=== PATIENT | male | born 1970 | race Caucasian/White ===

== ENCOUNTER 2022-07-03 07:23 | Observation (INO) | payer OTHER, SELFPAY ==
[2022-07-03] VITALS (21 sets, daily range): BP systolic 148–201; BP diastolic 75–105; PULSE 57–81; RESP 17–20; TEMP 36.3–37.2; O2SAT 94–100; BMI 29.6
--- NOTE | ~2022-07-03 | CT_ITS ---
EXAMINATION: CT abdomen pelvis w con DATE: 07/03/2022 08:21 INDICATION: Right lower quadrant abdominal pain. TECHNIQUE: Computed tomography (CT) of the abdomen and pelvis was performed with 100 mL Omnipaque 350 intravenous contrast. Automated exposure control and iterative reconstruction technique were employe d. The dose-length product was 805.22 mGy-cm. COMPARISON: Ultrasound abdomen 01/13/2015 FINDINGS: The visualized portions of the lung bases demonstrate mild atelectasis. No pleural effusion . The heart size is normal. No pericardial effusion. There is a small sliding hiatal hernia. There ar e cysts in the liver measuring up to 6 mm. There is an 18 mm hypoattenuated mass in right hepatic lob e. There are changes of cholecystectomy. Calcifications in the spleen are consistent with old granulo matous disease. The pancreas and adrenal glands are normal. There is a delayed right-sided contrast n ephrogram. There is a 2 mm stone in right kidney. There is mild right hydronephrosis. There is an 8 m m stone in proximal right ureter. There are cysts in left kidney measuring up to 20 mm. There are no dilated loops of bowel. The appendix is normal. There are no pathologically enlarged lymph nodes. The re is no free intraperitoneal fluid. There is moderate lumbar spondylosis and mild thoracic spondylos is. IMPRESSION: 1. 8 mm stone in proximal right ureter with mild right hydronephrosis. 2. 2 mm nonobstructing right kidney stone. 3. 18 mm liver mass, which may be benign or malignant. Abdomen MRI without and with contrast is recom mended. Reviewed, dictated and finalized at location A. IMPRESSION: 1. 8 mm stone in proximal right ureter with mild right hydronephrosis. 2. 2 mm nonobstructing right kidney stone. 3. 18 mm liver mass, which may be benign or malignant. Abdomen MRI without and with contrast is recommended.
--- NOTE | ~2022-07-03 | XR_ITS ---
EXAMINATION: XR abdomen/kub 1V DATE: 07/04/2022 11:01 INDICATION: Renal stone TECHNIQUE: A supine view of the abdomen on 2 radiographs was obtained. COMPARISON: CT dated 07/03/2022 FINDINGS: Cholecystectomy clips in right upper quadrant. Subtle density projecting over the tip of the right L3 transverse with likely representing the stone previously noted at the right ureteropelvic junction o n prior CT however assessment is somewhat limited by superimposed stool in the colon. No other lesion s suspicious for urolithiasis. Multiple splenic calcifications consistent with old granulomatous dise ase. No dilated loops of bowel to suggest obstruction. Lung bases are clear. Heart size is normal. Le ft supra-acetabular bone island. IMPRESSION: 1. Subtle focal density projecting over the region of the right ureteropelvic junction likely represe nting the previously noted obstructing stone. Specificities decreased by superimposed stool in the co alecia. Reviewed, dictated and finalized at location A. IMPRESSION: 1. Subtle focal density projecting over the region of the right ureteropelvic j unction likely representing the previously noted obstructing stone. Specificiti es decreased by superimposed stool in the colon.
--- NOTE | ~2022-07-03 | MR_ITS ---
EXAMINATION: MR abdomen wo/w con DATE: 07/03/2022 15:05 INDICATION: Liver mass. TECHNIQUE: Magnetic resonance imaging (MRI) of the abdomen was performed without and with 19 mL Multi Geo intravenous contrast. COMPARISON: CT abdomen and pelvis 07/03/2022 FINDINGS: There is diffuse hepatic steatosis. There are cysts in the liver measuring up to 5 mm. In the right h epatic lobe, there is a 19 mm mass with peripheral interrupted puddling of contrast, consistent with a hemangioma. The gallbladder is absent. The spleen, pancreas, and adrenal glands are normal. There i s mild right hydronephrosis. There is asymmetric edema around right kidney. There is a 2.0 cm cyst in left kidney. There are no dilated loops of bowel. There are no pathologically enlarged lymph nodes. There is no free intraperitoneal fluid. IMPRESSION: 1. 19 mm hemangioma in the liver. 2. Diffuse hepatic steatosis. 3. Mild right hydronephrosis with ureteral stone seen on the recent CT. Reviewed, dictated and finalized at location B.
--- NOTE | 2022-07-03 07:37 | ED.ABDPAIN ---
HPI - Abdominal Pain General Chief Complaint: Abdominal Pain Stated Complaint: abd pain Time Seen by Provider: 07/03/22 07:37 Source: patient, family and RN notes reviewed Limitations: no limitations History of Present Illness HPI narrative: 52 years old white male presents with right lower abdominal pain started 2 hours prior to arrival to the emergency room, sharp, stabbing, no radiation, he denies any fever, chills, nausea, vomiting, diarrhea, constipation or urinary symptoms, history of cholecystectomy Related Data Allergies Allergy/AdvReac Type Severity Reaction Status Date / Time No Known Allergies Allergy Verified 06/01/18 19:40 Review of Systems Review of Systems: All systems reviewed & are unremarkable except as noted in HPI and below PMFSH Family History Family History Mother Cerebrovascular accident Family history of pancreatic cancer Father Family history of malignant neoplasm Family history of diabetes mellitus in first degree relative Social History Social History Alcohol intake: current Exam Narrative: General appearance: Well-developed, well-nourished Skin: Normal color Head: Normocephalic, nontraumatic Eyes: Clear conjunctiva ENT: Oropharynx normal, ears normal, nose normal Neck: Supple, nontender Chest and respiratory: Airway patent, no respiratory distress, no accessory muscle use Heart: Regular rate/rhythm Abdomen: Soft, right lower quadrant tenderness, no organomegaly, quiet bowel sounds Vascular: Normal peripheral pulses, normal capillary refill. 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 Hudson Admit to hospitalist Date: 07/03/22 Time: 11:20 Vital Signs Vital signs: Vital Signs Temperature 36.7 C 07/03/22 07:30 Pulse Rate 64 07/03/22 07:30 Respiratory Rate 17 07/03/22 07:30 Blood Pressure 201/105 H 07/03/22 07:30 Pulse Oximetry 98 07/03/22 07:30 Oxygen Delivery Room Air 07/03/22 07:30 Temperature 36.7 C 07/03/22 07:30 Pulse Rate 64 07/03/22 07:30 Respiratory Rate 17 07/03/22 07:30 Blood Pressure 175/104 H 07/03/22 08:48 Pulse Oximetry 95 07/03/22 09:30 Oxygen Delivery Room Air 07/03/22 07:30 MDM - Abdominal Pain Lab Data Result diagrams: 07/03/22 07:44 07/03/22 07:44 Labs: Lab Results 07/03/22 07/03/22 07/03/22 Range/Units 07:44 07:44 08:42 WBC 8.2 (4.5-10.0) K/mm3 RBC 5.29 (4.6-6.20) M/mm3 Hgb 17.4 (14.0-18.0) g/dL Hct 50.0 (42.0-52.0) % MCV 94.5 (80-100) fl MCH 32.9 (26-34) pg MCHC 34.8 (32-36) g/dl RDW 12.5 (11.5-14.5) % Plt Count 187 (150-375) k/mm3 MPV 9.7 (7.4-10.4) fl Immature Gran % (Auto) 0.4 (0-0.5) % Neut % (Auto) 72.7 (45.5-73.1) % Lymph % (Auto) 16.0 L (18.3-44.2) % Keith % (Auto) 7.8 (2.6-8.5) % Eos % (Auto) 2.2 (0-4.4) % Baso % (Auto) 0.9 (0.2-1.2) % Lymph # (Auto) 1.31 (0.9-3.2) K/mm3 Keith # (Auto) 0.6 (0.1-0.6) K/mm3 Eos # (Auto) 0.2 (0-0.3) K/mm3 Baso # (Auto) 0.1 (0.0-0.1) K/mm3 Abs Immat Gran (auto) 0.03 (0.00-0.031) K/mm3 Absolute Neuts (auto) 6.0 (1.3-6.7) K/mm3 Absolute Nucleated RBC 0.0 (0.0-0.012) K/mm3 Nucleated RBC % 0.0 (0.0-0.2) % Sodium 138 (137-145) mmol/L Potassium 4.1 (3.4-5.0) mmol/L Chloride 107 (98-107) mmol/L Carbon Dioxide 24 (22-30) mmol/L Anion Gap 7 L (8-16) mmol/L BUN 14 (9-20
[2022-07-03 07:53] LABS: Basophils Absolute Auto 0.1 K/mm3 (0.0-0.1); Basophils Percent Auto 0.9 % (0.2-1.2); Eosinophils Absolute Auto 0.2 K/mm3 (0-0.3); Eosinophils Percent Auto 2.2 % (0-4.4); Hemoglobin 17.4 g/dL (14.0-18.0); Immature Granulocyte Absolute 0.03 K/mm3 (0.00-0.031); Immature Granulocyte Percent A 0.4 % (0-0.5); Lymphocytes Absolute Auto 1.31 K/mm3 (0.9-3.2); Mean Corpuscular HGB Conc 34.8 g/dl (32-36); Mean Corpuscular Hemoglobin 32.9 pg (26-34); Mean Corpuscular Volume 94.5 fl (80-100); Mean Platelet Volume 9.7 fl (7.4-10.4); Monocytes Absolute Auto 0.6 K/mm3 (0.1-0.6); Monocytes Percent Auto 7.8 % (2.6-8.5); Neutrophils Percent Auto 72.7 % (45.5-73.1); Platelet Count Result 187 k/mm3 (150-375); Red Blood Count 5.29 M/mm3 (4.6-6.20); Red Cell Distribution Width 12.5 % (11.5-14.5); White Blood Count 8.2 K/mm3 (4.5-10.0)
[2022-07-03 08:05] LABS: Alanine Aminotransferase 21 U/L (6-50); Albumin Level 4.1 g/dL (3.5-5.1); Alkaline Phosphatase 97 U/L (38-126); Anion Gap 7 mmol/L (8-16); Aspartate Amino Transferase 19 U/L (17-59); Bilirubin,Total 0.8 mg/dL (0.2-1.3); Blood Urea Nitrogen 14 mg/dL (9-20); Calcium 9.2 mg/dL (8.4-10.2); Carbon Dioxide 24 mmol/L (22-30); Chloride 107 mmol/L (98-107); Estimated CRCL calculation 89 ml/min; Estimated Glomerular Filt Rate > 60; Glucose 116 mg/dL (65-110); Lipase 57 U/L (23-300); Potassium 4.1 mmol/L (3.4-5.0); Sodium 138 mmol/L (137-145)
[2022-07-03] MEDS: SODIUM CHLORIDE 0.9% IV 1,000 ML 999 ML IV CONT (08:44)
[2022-07-03] MEDS: HYDROmorphone HCL INJ (*CRX) 1 MG/ML SYR 0.5 MG IV PUSH (08:44)
[2022-07-03] MEDS: ONDANSETRON INJ 4 MG/2 ML VIAL IV PUSH (08:45)
[2022-07-03 08:51] LABS: Appearance Urine Clear (Clear); Bilirubin Urine Negative (Negative); Blood Urine 2+ (Negative); Color Urine Yellow (Yellow); Glucose Urine UA Negative (Negative); Ketones Urine Negative (Negative); Leukocyte Esterase Ur Negative LEU/UL (Negative); Nitrate Urine Negative (Negative); Protein Urine Negative (Negative); Specific Grav Ur 1.015 (1.001-1.035); Urobilinogen Urine 0.2 mg/dL (<2.0); pH Urine 6.5 (5.0-9.0)
[2022-07-03 08:58] LABS: Mucus Urine Rare /lpf; WBC Urine 0-3 /hpf
[2022-07-03 09:00] LABS: Add Urine Microscopic? YES
[2022-07-03] MEDS: SODIUM CHLORIDE 0.9% IV 1,000 ML 125 ML IV CONT (11:41)
[2022-07-03] MEDS: TAMSULOSIN HCL 0.4 MG CAPSULE PO (11:42)
--- NOTE | 2022-07-03 12:14 | PC.NURSE ---
Patient care report called to TABITHA Rawls. All questions answered at this time.
--- NOTE | 2022-07-03 12:55 | ADMGEN ---
This patient, Harvinder Barajas, was admitted to Medical Room 253-01. Patient/family oriented to hospital policies and general routines including ID bracelet, bed and alarms, visiting hours, pain management, procedures, bathroom and other care routines, personal items, smoking policy, room service/diet, and visiting hours. Information on how to activate the Rapid Response Team has been discussed. Patient/Family are encouraged to report perceived risks to care and to ask questions if they do not understand what they are told or what they should do.
--- NOTE | 2022-07-03 13:15 | PM.IMHP ---
H&P: HPI History of Present Illness Date/Time: 07/03/22 13:15 Chief Complaint: Abdominal pain Narrative: This is a 52-year-old male patient who has no prior medical history. The patient came in today with complaints of right lower abdominal pain that started 2 hours prior to coming to the emergency room. The patient denied any fever chills nausea vomiting or diarrhea or constipation. No urinary symptoms. Patient has no history of having any kidney stones. His white count is normal. He has 2+ urine blood. Urine rbc's 11-20. Abdominal pelvis CT was read as the following1. 8 mm stone in proximal right ureter with mild right hydronephrosis. 2. 2 mm nonobstructing right kidney stone. 3. 18 mm liver mass, which may be benign or malignant. Abdomen MRI without and with contrast is recommended. Urology has been consulted and has already seen the patient. Who the patient was started on IV fluids, Dilaudid, Zofran and Flomax. The patient has no history of hypertension however his blood pressures have been running from 201/105 to 168/95. He has been ranging his pain /10. The patient stated initially the pain had him bent over and he was having difficulty walking. The patient is being admitted to inpatient status on the date of service of 07/03/2022. Review of Systems Review of Systems: See HPI All systems reviewed & are unremarkable except as noted in HPI and below Constitutional: Constitutional: Reports as per HPI and Reports no additional constitutional complaints Eyes: Eyes: Reports as per HPI and Reports no additional eye complaints ENT: Reports system reviewed and no additional complaints, except as documented and Reports Normal hearing present Cardiovascular: Cardiovascular: Reports no additional cardiovascular complaints Respiratory: Respiratory: Reports no additional respiratory complaints and Reports no additional respiratory complaints Gastrointestinal: Gastrointestinal: Reports as per HPI and Reports no additional gastrointestinal complaints Musculoskeletal: Musculoskeletal: Reports no additional musculoskeletal complaints Integumentary/Breasts: Skin/Breast: Reports system reviewed and no additional complaints, except as docu and Reports as per HPI Neurologic: Reports system reviewed and no additional complaints, except as documented, Reports as per HPI and Reports Normal hearing present Psychiatric: Psychiatric: Reports no additional psychiatric complaints and Reports as per HPI Endocrine: Endocrine: Reports no additional endocrine complaints Hematologic/Lymphatic: Hematologic/Lymphatic: Reports no additional hematologic/lymphatic complaints Allergic/Immunologic: Allergic/Immunologic: Reports no additional allergic/immunologic complaints PMFSH Past Medical History Medical History (Updated 07/03/22 @ 14:36 by Jazz Goff NP) Tobacco abuse Surgical History Surgical History H/O vasectomy Hx of cholecystectomy S/P ORIF (open reduction internal fixation) fracture Bilateral ankles Family History Family History Mother Cerebrovascular accident Family history of pancreatic cancer Father Family history of malignant neoplasm Family history of diabetes mellitus in first degree relative Social History Social History (Updated 07/03/22 @ 14:41 by Jazz Goff NP) Social History: The patient states that he smoked 15-20 cigars a day. He lives with his and his is the durable power energy attorney for healthcare. They have 3 children. The patient works at [employer]. He denies any marijuana alcohol or illicit drugs. His is the durable power energy attorney for healthcare. Code status full code Years smoked: 35 Smoking status: Current every day smoker Tobacco type: cigars Second hand tobacco smoke exposure: No Additional smoking assessment comments: pt states he smokes 15 cigars/
--- NOTE | 2022-07-03 14:13 | WPDURCON ---
Assessment and Plan Assessment and plan (1) Ureterolithiasis: Code(s): N20.1 - Calculus of ureter Status: Acute (2) Liver mass: Code(s): R16.0 - Hepatomegaly, not elsewhere classified Status: Acute Plan right 8mm UPJ stone - options discussed in detail with observation, trial of passage, placement of stent and deferred management, ESWL and URS -risks, benefits, alternatives, nature of each approach, pro s cons reviewed. SE of stent discussed in detail, temporary nature of stent discussed. -given minimal pain at this time we will observe and plan for elective ESWL down the road -if pain worsens then plan for stent tomorrow, NPO at [place] U[facility] Consult Note HPI Date Seen: 07/03/22 Requesting Physician: Lore Anna DO Primary Care Provider: Jai Zayas MD Consult Narrative Narrative: Harvinder Barajas is a 52 year old male with acute onset of right flank pain 7/10 radiating to RLQ. No prior hx of stones. No hematuria or dysuria. No prior hx of stones. No N/V/F/C/CP/SOB. No family hx of stones. CT shows 8mm prox ureter stone with mild hydro. Received IV pain meds and pain currently 10/12. CT shows incidental liver mass. Review of Systems Constitutional: Constitutional: Reports no additional constitutional complaints, Denies fever(s), Denies snoring and Denies weakness Eyes: Eyes: Reports no additional eye complaints ENT: Reports system reviewed and no additional complaints, except as documented, Denies dysphagia, Denies dizziness, Denies dry mouth and Denies ear discharge Respiratory: Respiratory: Reports no additional respiratory complaints, Denies hemoptysis, Denies snoring and Denies wheezing Gastrointestinal: Gastrointestinal: Reports as per HPI, Reports no additional gastrointestinal complaints, Denies dysphagia, Denies loose stools and Denies nausea Genitourinary: Genitourinary: Reports no additional male genitourinary complaints and Reports as per HPI Musculoskeletal: Musculoskeletal: Reports no additional musculoskeletal complaints and Reports as per HPI Integumentary/Breasts: Skin/Breast: Reports system reviewed and no additional complaints, except as docu and Reports as per HPI Neurologic: Reports system reviewed and no additional complaints, except as documented, Reports as per HPI, Denies confusion, Denies dizziness, Denies memory loss and Denies weakness Psychiatric: Psychiatric: Reports no additional psychiatric complaints, Reports as per HPI, Denies confusion, Denies memory loss and Denies mood swings Endocrine: Endocrine: Reports no additional endocrine complaints Hematologic/Lymphatic: Hematologic/Lymphatic: Reports no additional hematologic/lymphatic complaints and Reports as per HPI Allergic/Immunologic: Allergic/Immunologic: Reports no additional allergic/immunologic complaints, Reports as per HPI and Denies wheezing PMFSH Family History Family History Mother Cerebrovascular accident Family history of pancreatic cancer Father Family history of malignant neoplasm Family history of diabetes mellitus in first degree relative Social History Social History Years smoked: 35 Smoking status: Current every day smoker Tobacco type: cigars Second hand tobacco smoke exposure: No Additional smoking assessment comments: pt states he smokes 15 cigars/day Alcohol intake: never Substance use: never Spiritual care concerns: No Meds Home Medications and Allergies Allergies Allergy/AdvReac Type Severity Reaction Status Date / Time No Known Allergies Allergy Verified 06/01/18 19:40 Vital Signs Vital Signs - 24 hr 07/03/22 07:30 07/03/22 07:48 07/03/22 08:00 Temperature 36.7 C Pulse Rate 64 Respiratory Rate 17 Blood Pressure 201/105 H Pulse Oximetry 98 97 94 Oxygen Delivery Room Air 07/03/22 08:26 07/03/22 0
[2022-07-03] MEDS: hydrALAZINE HCL 20 MG/ML VIAL 10 MG IV PUSH (15:19)
[2022-07-04] MEDS: hydrALAZINE HCL 20 MG/ML VIAL 10 MG IV PUSH (04:54)
[2022-07-04 05:18] VITALS: BP 172/88; PULSE 77; RESP 17; TEMP 36.9; O2SAT 96
[2022-07-04] MEDS: SODIUM CHLORIDE 0.9% IV 1,000 ML 125 ML IV CONT (05:24)
[2022-07-04 05:28] LABS: Basophils Absolute Auto 0.1 K/mm3 (0.0-0.1); Basophils Percent Auto 0.6 % (0.2-1.2); Eosinophils Absolute Auto 0.2 K/mm3 (0-0.3); Eosinophils Percent Auto 1.9 % (0-4.4); Hematocrit 47.6 % (42.0-52.0); Hemoglobin 16.7 g/dL (14.0-18.0); Immature Granulocyte Absolute 0.04 K/mm3 (0.00-0.031); Immature Granulocyte Percent A 0.5 % (0-0.5); Lymphocytes Absolute Auto 1.42 K/mm3 (0.9-3.2); Lymphocytes Percent Auto 16.6 % (18.3-44.2); Mean Corpuscular HGB Conc 35.1 g/dl (32-36); Mean Corpuscular Hemoglobin 32.4 pg (26-34); Mean Corpuscular Volume 92.2 fl (80-100); Mean Platelet Volume 10.1 fl (7.4-10.4); Monocytes Absolute Auto 0.5 K/mm3 (0.1-0.6); Monocytes Percent Auto 6.2 % (2.6-8.5); Neutrophils Absolute Auto 6.4 K/mm3 (1.3-6.7); Neutrophils Percent Auto 74.2 % (45.5-73.1); Platelet Count Result 177 k/mm3 (150-375); Red Blood Count 5.16 M/mm3 (4.6-6.20); Red Cell Distribution Width 12.3 % (11.5-14.5); White Blood Count 8.6 K/mm3 (4.5-10.0)
[2022-07-04 05:44] LABS: Lactic Acid Reflex 0.7 mmol/L (0.7-2.0)
[2022-07-04 05:45] LABS: Alanine Aminotransferase 19 U/L (6-50); Albumin Level 3.8 g/dL (3.5-5.1); Alkaline Phosphatase 89 U/L (38-126); Anion Gap 9 mmol/L (8-16); Aspartate Amino Transferase 16 U/L (17-59); Bilirubin,Total 1.1 mg/dL (0.2-1.3); Blood Urea Nitrogen 11 mg/dL (9-20); CRP < 0.5 mg/dL (<1.0); Calcium 8.5 mg/dL (8.4-10.2); Carbon Dioxide 22 mmol/L (22-30); Chloride 108 mmol/L (98-107); Estimated CRCL calculation 89 ml/min; Estimated Glomerular Filt Rate > 60; Glucose 110 mg/dL (65-110); Magnesium 2.1 mg/dL (1.6-2.3); Potassium 3.6 mmol/L (3.4-5.0); Sodium 139 mmol/L (137-145)
[2022-07-04] MEDS: HYDROmorphone HCL INJ (*CRX) 1 MG/ML SYR 0.5 MG IV PUSH (06:30)
--- NOTE | 2022-07-04 10:23 | WPDUROPN2 ---
Progress Note: A&P Assessment and Plan (1) Ureterolithiasis: Code(s): N20.1 - Calculus of ureter Status: Acute (2) Liver mass: Code(s): R16.0 - Hepatomegaly, not elsewhere classified Status: Acute Plan right 8mm UPJ stone - he is asymptomatic from standpoint -we will obtain KUB -given minimal pain at this time we will observe and plan for elective ESWL down the road - instructed to avoid NSAIDS, ASA, fish oil blood thinners prior x 1 week Subjective Subjective Date/Time Seen: 07/04/22 10:23 No flank pain. No hematuria or dysuria. has a headache. wants to treat with ESWL down the road. we will get KUB Review of Systems Constitutional: Constitutional: Reports no additional constitutional complaints, Denies fever(s), Denies snoring and Denies weakness Eyes: Eyes: Reports no additional eye complaints ENT: Reports system reviewed and no additional complaints, except as documented, Denies dysphagia, Denies dizziness, Denies dry mouth and Denies ear discharge Respiratory: Respiratory: Reports no additional respiratory complaints, Denies hemoptysis, Denies snoring and Denies wheezing Gastrointestinal: Gastrointestinal: Reports as per HPI, Reports no additional gastrointestinal complaints, Denies dysphagia, Denies loose stools and Denies nausea Genitourinary: Genitourinary: Reports no additional male genitourinary complaints and Reports as per HPI Musculoskeletal: Musculoskeletal: Reports no additional musculoskeletal complaints and Reports as per HPI Integumentary/Breasts: Skin/Breast: Reports system reviewed and no additional complaints, except as docu and Reports as per HPI Neurologic: Reports system reviewed and no additional complaints, except as documented, Reports as per HPI, Denies confusion, Denies dizziness, Denies memory loss and Denies weakness Psychiatric: Psychiatric: Reports no additional psychiatric complaints, Reports as per HPI, Denies confusion, Denies memory loss and Denies mood swings Endocrine: Endocrine: Reports no additional endocrine complaints Hematologic/Lymphatic: Hematologic/Lymphatic: Reports no additional hematologic/lymphatic complaints and Reports as per HPI Allergic/Immunologic: Allergic/Immunologic: Reports no additional allergic/immunologic complaints, Reports as per HPI and Denies wheezing Exam Const: General: cooperative, healthy appearing, comfortable, no acute distress, well developed and alert; No confusion Nutritional Appearance: well nourished Orientation/consciousness: oriented to person, oriented to place, oriented to time, patient oriented x3 and No confusion Eyes: General: appearance normal, both eyes and all related structures Neck: Lymphatic: no lymphadenopathy noted Resp: Effort & Inspection: normal respiratory effort and no use of accessory muscles Cardio: Rhythm: regular rhythm GI: Inspection: normal to inspection and non-distended Rectal Exam: deferred : General: Yes no CVA tenderness Back/Spine/Pelvis: Back: no CVA tenderness Skin: General skin exam: normal color and no rashes or lesions noted Neuro: General: oriented to person, oriented to place, oriented to time, patient oriented x3, no focal motor deficits and No confusion Speech: normal speech Extrem: General: normal to inspection and no clubbing, cyanosis or edema Objective Data Vital Signs Vital Signs: Vital Signs - 24 hr 07/03/22 10:28 07/03/22 10:58 07/03/22 11:00 Temperature Pulse Rate Respiratory Rate Blood Pressure Pulse Oximetry 96 97 99 Oxygen Delivery 07/03/22 11:01 07/03/22 11:02 07/03/22 11:37 Temperature Pulse Rate Respiratory Rate Blood Pressure 166/95 H Pulse Oximetry 98 97 98 Oxygen Delivery 07/03/22 11:56 07/03/22 12:33 07/03/22 14:30 Temperature 36.3 C L Pulse Rate 57 L Respiratory Rate 20 Blood Pressure 168/102 H Pulse Oximetry 97 100 Oxygen Delivery Room Air 07/03/22 15:14
--- NOTE | 2022-07-04 12:55 | PM.DS ---
DS: Admitting Diagnosis Discharge Date 07/04/2022 Admitting Diagnosis abdominal pain DS: Discharge Diagnosis Discharge Diagnosis (1) Ureterolithiasis: Code(s): N20.1 - Calculus of ureter Status: Acute Assessment and Plan: -Dr. Smith has already seen the patient and discussed with the patient his options. This was noted from Urology note right 8mm UPJ stone - options discussed in detail with observation, trial of passage, placement of stent and deferred management, ESWL and URS -risks, benefits, alternatives, nature of each approach, pro s cons reviewed. SE of stent discussed in detail, temporary nature of stent? discussed. -given minimal pain at this time we will observe and plan for elective ESWL down the road -if pain worsens then plan for stent tomorrow, NPO at [place] -continue with IV fluids -analgesics -Flomax -monitor renal function which they appear to be at baseline at this time. -Zofran (2) Elevated blood pressure reading: Code(s): R03.0 - Elevated blood-pressure reading, without diagnosis of hypertension Status: Acute Assessment and Plan: -p.r.n. hydralazine with parameters. -this could be related to his pain level as well. The patient has been having rypb-bh-gupheihp pain. (3) Tobacco abuse: Code(s): Z72.0 - Tobacco use Status: Acute Assessment and Plan: -the patient has been encouraged to stop smoking. The patient smokes 15-20 cigars a day. (4) Liver mass: Code(s): R16.0 - Hepatomegaly, not elsewhere classified Status: Acute Assessment and Plan: -abdominal MRI has been ordered. He has a 18 mm liver mass, which may be benign or malignant. DS: Summary Hospital Course Reason for hospitalization: Chief Complaint: Abdominal pain Narrative: This is a 52-year-old male patient who has no prior medical history.? The patient came in today with complaints of right lower abdominal pain that started 2 hours prior to coming to the emergency room.? The patient denied any fever chills nausea vomiting or diarrhea or constipation.? No urinary symptoms.? Patient has no history of having any kidney stones.? His white count is normal.? He has 2+ urine blood.? Urine rbc's 11-20.? Abdominal pelvis CT was read as the following1. 8 mm stone in proximal right ureter with mild right hydronephrosis. 2. 2 mm nonobstructing right kidney stone. 3. 18 mm liver mass, which may be benign or malignant. Abdomen MRI without and with contrast is recommended. Urology has been consulted and has already seen the patient. Who the patient was started on IV fluids, Dilaudid, Zofran and Flomax. The patient has no history of hypertension however his blood pressures have been running from 201/105 to 168/95.? He has been ranging his pain 04/11.? The patient stated initially the pain had him bent over and he was having difficulty walking.? The patient is being admitted to inpatient status on the date of service of 07/03/2022. Hospital Course: patient present with a nephrolithiasis his symptoms have improved his pain is resolved seen by urologist and recommended patient can be discharged home today and will follow up as outpatient for elective ESWL. patient is clinically stable will discharge patient today patient is instructed to keep himself hydrated, patient to follow-up discharge care instruction from his urology, not to take any blood thinner such as fish oil, aspirin, NSAIDs or any blood thinner, follow up with urologist as scheduled, follow up with his primary care provider as soon as possible, patient is instructed if any symptoms get worsen to go to nearest ER, Time Spent with Patient Time attestation: Total time spent providing and/or coordinating discharge services: Exam Narrative: Patient is comfortable, NAD HEENT: eyes are clear and none icteric LUNGS:CTA HEART: RR S1S2 ABD: BS+, Soft and nontender Lower extremities: no edema SKIN: nonjaundiced Neuro: grossly
--- NOTE | 2022-07-05 07:41 | WPDANESPN ---
Anes - Prog Note Post-Op Date/Time: 07/05/22 07:41 Cardiovascular status: normal Respiratory status: normal Airway patency: baseline Mental status: baseline Post-Op hydration status: normal Vital Signs: Last Vital Signs Temp 98.5 F 07/04/22 05:18 Pulse 77 07/04/22 05:18 Resp 17 07/04/22 05:18 BP 172/88 H 07/04/22 05:18 Pulse Ox 96 07/04/22 05:18 O2 Del Method Room Air 07/04/22 09:15 Pain Score (VAS): 0/10 I/O: Intake & Output 07/04/22 07/04/22 07/05/22 15:59 23:59 07:59 Intake Total 680 Output Total 1450 Balance -770 Laboratory Tests 07/04/22 04:55 07/04/22 04:55 Post-procedural complaints: none Patient Feedback: Patient satisfied with anesthetic care. Other Findings: per report
== END 2022-07-04 13:10 | disposition home or self-care (01) ==
LOC: ANHED 11:31 → ANH2MED 12:16
PROVIDERS: Nurse Practitioner; Admitting Provider Student in an Organized Health Care Education/Training Program; Emergency Provider Emergency Medicine; PCP Family Medicine Adolescent Medicine; Visit Provider Family Medicine
DX: N13.2 Hydronephrosis with renal and ureteral calculous obstruction (principal); R03.0 Elevated blood-pressure reading, without diagnosis of hypertension; F17.290 Nicotine dependence, other tobacco product, uncomplicated; R16.0 Hepatomegaly, not elsewhere classified; D18.09 Hemangioma of other sites; Z90.49 Acquired absence of other specified parts of digestive tract; F10.90 Alcohol use, unspecified, uncomplicated
CPT/HCPCS: 36415; 74018; 74177; 74183; 80053; 81001; 83605; 83690; 83735; 84443; 85025; 86140; 96361; 96374; 96375; 99285; A9270; A9577; G0378; G0379; J0131; J0360; J1170; J2405; J7030; Q9967

== ENCOUNTER 2022-09-28 16:28 | Emergency (ER) | payer OTHER, SELFPAY ==
--- NOTE | ~2022-09-28 | CT_ITS ---
EXAMINATION: CTA brain carotid DATE: 09/28/2022 19:49 INDICATION: persistent dizziness TECHNIQUE: Computed tomographic angiography (CTA) of the head and neck was performed with 100 mL Omni paque-350 intravenous contrast. Automated exposure control and iterative reconstruction technique wer e employed. The dose-length product was 1129.41 mGy-cm. Maximum intensity projection and volume rende red 3D-reconstructions were created by the technologist on a separate workstation. COMPARISON: CT brain, same date. FINDINGS: CTA HEAD: No large vessel occlusion, aneurysm, high flow vascular malformation, nidus or extravasation. Minimal cavernous carotid calcified plaques, without significant stenosis. CTA NECK: Aortic arch and proximal great vessels: Normal arch anatomy. No significant plaque. Right common carotid, carotid bifurcation, and internal carotid artery: No significant plaque.There i s 0% stenosis of the proximal right internal carotid artery relative to normal distal artery lumen di ameter (NASCET criteria). Left common carotid, carotid bifurcation, and internal carotid artery: No significant plaque.There is 0% stenosis of the proximal left internal carotid artery relative to normal distal artery lumen diam eter (NASCET criteria). Vertebral arteries: No significant plaque or stenosis. Other findings: None. IMPRESSION: 1. No large vessel occlusion. 2. No significant carotid or vertebral stenosis. Reviewed, dictated and finalized at location K. RCOVER OPERATOR
--- NOTE | ~2022-09-28 | CT_ITS ---
EXAMINATION: CT brain wo con DATE: 09/28/2022 17:00 INDICATION: double vision x 10days . TECHNIQUE: Computed tomography (CT) of the head was performed without intravenous contrast. The mA wa s adjusted according to patient size. Iterative reconstruction technique was employed. The dose-lengt h product was 605.33 mGy-cm. COMPARISON: 07/23/2008. FINDINGS: No acute intracranial hemorrhage or extra-axial fluid collection. No hydrocephalus, mass, or herniation. No acute ischemic infarct. Unremarkable dural venous sinus attenuation. No acute osseous abnormality. The aerated spaces are clear. IMPRESSION: No acute intracranial process. Reviewed, dictated and finalized at location K. ET CLEANER
[2022-09-28 16:44] VITALS: BP 169/101; PULSE 66; RESP 16; TEMP 36.7
--- NOTE | 2022-09-28 16:51 | PC.NURSE ---
Spoke with Dr. Angelo about pt results and he gave VO/RB CT head
--- NOTE | 2022-09-28 17:44 | ECG_ITS ---
Measurements Intervals [place] Rate: 68 P: 45 [place]: 192 QRS: 38 QRSD: 105 T: 46 QT: 393 QTc: 418 Interpretive Statements SINUS RHYTHM NORMAL ECG NO PREVIOUS ECG AVAILABLE FOR COMPARISON Electronically Signed On 09-28-2022 18:10:24 SERVICE DOG TRAINER by David Walton M.D.
[2022-09-28 18:00] LABS: Basophils Absolute Auto 0.1 K/mm3 (0.0-0.1); Basophils Percent Auto 0.9 % (0.2-1.2); Eosinophils Absolute Auto 0.1 K/mm3 (0-0.3); Eosinophils Percent Auto 1.7 % (0-4.4); Hematocrit 47.6 % (42.0-52.0); Immature Granulocyte Absolute 0.04 K/mm3 (0.00-0.031); Immature Granulocyte Percent A 0.5 % (0-0.5); Lymphocytes Percent Auto 24.2 % (18.3-44.2); Mean Corpuscular HGB Conc 33.6 g/dl (32-36); Mean Corpuscular Hemoglobin 31.9 pg (26-34); Mean Platelet Volume 9.8 fl (7.4-10.4); Monocytes Absolute Auto 0.5 K/mm3 (0.1-0.6); Monocytes Percent Auto 6.5 % (2.6-8.5); Neutrophils Absolute Auto 5.2 K/mm3 (1.3-6.7); Neutrophils Percent Auto 66.2 % (45.5-73.1); Platelet Count Result 173 k/mm3 (150-375); Red Blood Count 5.01 M/mm3 (4.6-6.20); Red Cell Distribution Width 12.3 % (11.5-14.5); White Blood Count 7.8 K/mm3 (4.5-10.0)
[2022-09-28 18:11] LABS: Alanine Aminotransferase 24 U/L (6-50); Albumin Level 4.5 g/dL (3.5-5.1); Alkaline Phosphatase 87 U/L (38-126); Anion Gap 7 mmol/L (8-16); Aspartate Amino Transferase 21 U/L (17-59); Bilirubin,Total 0.9 mg/dL (0.2-1.3); Blood Urea Nitrogen 13 mg/dL (9-20); Calcium 8.9 mg/dL (8.4-10.2); Carbon Dioxide 29 mmol/L (22-30); Chloride 103 mmol/L (98-107); Estimated CRCL calculation 111 ml/min; Estimated Glomerular Filt Rate > 60; Glucose 96 mg/dL (65-110); Potassium 3.7 mmol/L (3.4-5.0); Sodium 139 mmol/L (137-145)
[2022-09-28 18:23] LABS: Troponin I < 0.012 ng/mL (0.000-0.034)
[2022-09-28 18:38] LABS: Influenza A QL RT-PCR Negative (Negative); Influenza B QL RT-PCR Negative (Negative); SARS-CoV-2 RNA PCR Negative
[2022-09-28 18:46] VITALS: BP 175/100; PULSE 69; RESP 21
[2022-09-28 18:57] VITALS: BP 175/100; PULSE 66; RESP 20; O2SAT 98
--- NOTE | 2022-09-28 19:18 | ED.RECABL ---
HPI - Recheck/Abnormal Lab/Rx General Chief Complaint: Recheck/Abnormal Lab/Rx Stated Complaint: double vision Time Seen by Provider: 09/28/22 18:53 Source: patient Mode of arrival: wheelchair Limitations: no limitations History of Present Illness HPI narrative: This is a 52 year old male that presents to the ER for dizziness ongoing over the last 10 days. Reports he feels off balance when he walks. He feels as if his vision is blurry and has a mild headache. Reports prior to this starting he was walking and had bumped his head on a trailer. His blood pressures have also been running a little elevated. He has been taking his home antihypertensive as prescribed. Denies fever, vomiting, chest pain, shortness of breath, focal numbness or weakness, or lower extremity edema. Related Data Allergies Allergy/AdvReac Type Severity Reaction Status Date / Time No Known Allergies Allergy Verified 07/07/22 09:14 Review of Systems Review of Systems: CONSTITUTIONAL: Denies fever EYES: Reports visual changes CARDIOVASCULAR: Denies chest pain, or edema. RESPIRATORY: Denies dyspnea. GASTROINTESTINAL: Denies vomiting NEUROLOGIC: Reports headache. Denies numbness, or weakness. All systems reviewed & are unremarkable except as noted in HPI and below PMFSH Past Medical History Medical History (Updated 09/28/22 @ 21:45 by Leigh Rose PA-C) Hypertension Tobacco abuse Surgical History Surgical History H/O vasectomy Hx of cholecystectomy S/P ORIF (open reduction internal fixation) fracture Bilateral ankles Family History Family History Mother Cerebrovascular accident Family history of pancreatic cancer Father Family history of malignant neoplasm Family history of diabetes mellitus in first degree relative Social History Social History (Updated 07/03/22 @ 14:41 by Jazz Goff NP) Social History: The patient states that he smoked 15-20 cigars a day. He lives with his and his is the durable power decision support manager for healthcare. They have 3 children. The patient works at [employer]. He denies any marijuana alcohol or illicit drugs. His is the durable power decision support manager for healthcare. Code status full code Years smoked: 35 Smoking status: Current every day smoker Tobacco type: cigars Second hand tobacco smoke exposure: No Additional smoking assessment comments: pt states he smokes 15 cigars/day Alcohol intake: never Substance use: never Spiritual care concerns: No Exam Narrative: GENERAL: Well-appearing, well-nourished, and in no acute distress. HEAD: Normocephalic, atraumatic. EYES: PERRLA and EOMI. ENT: Nares clear, no rhinorrhea or epistaxis. Mucous membranes moist. Oropharynx without tonsillar hypertrophy exudate or other lesions. Bilateral TMs pearly severino non-bulging NECK: Supple. No adenopathy or masses. No midline spinal tenderness CHEST: Clear to auscultation. No respiratory distress. No wheezes rales or rhonchi HEART: Regular rate and rhythm. No murmur heard. Normal peripheral pulses. EXTREMITIES: Normal range of motion. No edema. Strength equal in bilateral upper and lower extremities (5/5) SKIN: Warm, dry, no rash. NEURO: No focal deficits. Alert and oriented x3. Cranial nerves II through XII grossly intact. Normal [id number] PSYCH: Normal mood and affect Course Course Emergency Course: Patient updated on work-up. Reports he is now feeling better, he did not feel dizzy upon standing Vital Signs Vital signs: Vital Signs Temperature 98.1 F 09/28/22 16:44 Pulse Rate 66 09/28/22 16:44 Respiratory Rate 16 09/28/22 16:44 Blood Pressure 169/101 H 09/28/22 16:44 Oxygen Delivery Room Air 09/28/22 16:44 Temperature 98.1 F 09/28/22 16:44 Pulse Rate 61 09/28/22 20:49 Respiratory Rate 20 09/28/22 20:49 Blood Pressure 163/96 H
[2022-09-28] MEDS: MECLIZINE HCL 25 MG TABLET PO (19:33)
[2022-09-28] MEDS: SODIUM CHLORIDE 0.9% IV 500 ML 999 ML IV CONT (19:34)
[2022-09-28 20:01] VITALS: BP 165/92; PULSE 70; RESP 22; O2SAT 97
--- NOTE | 2022-09-28 20:42 | PC.NURSE ---
Pt reports no change after IV tylenol and meclizine. States he still feels drunk when walking to bathroom. Headache has improved.
[2022-09-28 20:49] VITALS: BP 163/96; PULSE 61; RESP 20; O2SAT 97
[2022-09-28 22:07] VITALS: BP 170/100; PULSE 70; RESP 18; TEMP 36.6; O2SAT 97
== END 2022-09-28 22:15 | disposition home or self-care (01) ==
PROVIDERS: Family Medicine; Emergency Provider Physician Assistant; PCP Family Medicine Adolescent Medicine
DX: R42 Dizziness and giddiness (principal); Z20.822 Contact with and (suspected) exposure to COVID-19; I10 Essential (primary) hypertension; F17.210 Nicotine dependence, cigarettes, uncomplicated
CPT/HCPCS: 36415; 70450; 70496; 70498; 80053; 84484; 85025; 87636; 93005; 96365; 99284; A9270; J0131; J7040; Q9967

== ENCOUNTER 2023-04-04 11:05 | Outpatient (CLI) | payer OTHER, SELFPAY ==
--- NOTE | ~2023-04-04 | XR_ITS ---
Lumbosacral Spine: AP and lateral views Clinical History: Pain Findings: The normal lordotic curve is maintained. The vertebral bodies and posterior elements are i ntact. The intervertebral disc spaces are preserved. Mild facet joint degenerative changes are prese nt. There is probable anterior osteophyte formation about the L3-L4 disc space. The sacroiliac joints are normally outlined. Impression: Mild degenerative change, as above. Reviewed, dictated and finalized at location M. Impression: Mild degenerative change, as above.
[2023-04-04 12:39] LABS: Basophils Absolute Auto 0.1 K/mm3 (0.0-0.1); Basophils Percent Auto 0.9 % (0.2-1.2); Eosinophils Absolute Auto 0.2 K/mm3 (0-0.3); Eosinophils Percent Auto 2.5 % (0-4.4); Hematocrit 46.6 % (42.0-52.0); Hemoglobin 16.2 g/dL (14.0-18.0); Immature Granulocyte Absolute 0.03 K/mm3 (0.00-0.031); Immature Granulocyte Percent A 0.3 % (0-0.5); Lymphocytes Percent Auto 24.2 % (18.3-44.2); Mean Corpuscular HGB Conc 34.8 g/dl (32-36); Mean Corpuscular Hemoglobin 32.1 pg (26-34); Mean Corpuscular Volume 92.5 fl (80-100); Mean Platelet Volume 9.9 fl (7.4-10.4); Monocytes Absolute Auto 0.6 K/mm3 (0.1-0.6); Monocytes Percent Auto 6.6 % (2.6-8.5); Neutrophils Absolute Auto 5.9 K/mm3 (1.3-6.7); Neutrophils Percent Auto 65.5 % (45.5-73.1); Platelet Count Result 184 k/mm3 (150-375); Red Blood Count 5.04 M/mm3 (4.6-6.20); Red Cell Distribution Width 12.5 % (11.5-14.5); White Blood Count 9.1 K/mm3 (4.5-10.0)
[2023-04-04 12:47] LABS: Alanine Aminotransferase 24 U/L (6-50); Albumin Level 4.2 g/dL (3.5-5.1); Alkaline Phosphatase 90 U/L (38-126); Anion Gap 5 mmol/L (8-16); Aspartate Amino Transferase 28 U/L (17-59); Bilirubin,Total 0.9 mg/dL (0.2-1.3); Blood Urea Nitrogen 12 mg/dL (9-20); Calcium 9.1 mg/dL (8.4-10.2); Carbon Dioxide 29 mmol/L (22-30); Chloride 107 mmol/L (98-107); Cholesterol 181 mg/dL (0-200); Estimated Glomerular Filt Rate > 60; Glucose 99 mg/dL (65-110); HDL Direct 32 mg/dL; Potassium 3.9 mmol/L (3.4-5.0); Sodium 141 mmol/L (137-145); Triglycerides 152 mg/dL (<150)
[2023-04-04 12:58] LABS: LDL Cholesterol Direct 114 mg/dL
[2023-04-04 13:31] LABS: Creatinine Urine 289.9 mg/dL
[2023-04-04 13:35] LABS: MALB Creatinine Ratio 3.3 mg/g (0-30); Microalbumin Urine Random 9.7 mg/L (0-16.7)
== END 2023-04-04 11:06 | disposition home or self-care (01) ==
PROVIDERS: PCP Family Medicine Adolescent Medicine; Visit Provider Nurse Practitioner Family
DX: R20.0 Anesthesia of skin (principal); K76.0 Fatty (change of) liver, not elsewhere classified; I10 Essential (primary) hypertension
CPT/HCPCS: 36415; 72100; 80053; 80061; 82043; 82607; 84443; 85025

== ENCOUNTER 2024-05-03 12:21 | Emergency (ER) | payer OTHER, SELFPAY ==
--- NOTE | ~2024-05-03 | CT_ITS ---
EXAMINATION: CT abdomen pelvis wo con DATE: 05/03/2024 12:57 INDICATION: Left flank and abdominal pain. TECHNIQUE: Computed tomography (CT) of the abdomen and pelvis was performed without intravenous contr ast. Automated exposure control and iterative reconstruction technique were employed. The dose-length product was 666.44 mGy-cm. COMPARISON: CT abdomen and pelvis 07/03/2022 FINDINGS: The visualized portions of the lung bases demonstrate mild atelectasis. No pleural effusion . The heart size is normal. No pericardial effusion. There is a small sliding hiatal hernia. Again se en is a 16 mm hypodense liver mass, likely benign. There are changes of cholecystectomy. Calcificatio ns in the spleen are consistent with old granulomatous disease. The pancreas and adrenal glands are n ormal. There is a 2 mm stone in right kidney. There is mild left hydronephrosis and hydroureter. Ther e is a 3 mm stone at left ureterovesicular junction. There is a 2.2 cm cyst in left kidney. There are no dilated loops of bowel. There are no pathologically enlarged lymph nodes. There is no free intrap eritoneal fluid. There is mild thoracic and lumbar spondylosis. IMPRESSION: 1. 3 mm stone at left ureterovesicular junction with mild left hydronephrosis and hydroureter. 2. 2 mm nonobstructing right kidney stone. Reviewed, dictated and finalized at location A. IMPRESSION: 1. 3 mm stone at left ureterovesicular junction with mild left hydronephrosis a nd hydroureter. 2. 2 mm nonobstructing right kidney stone.
[2024-05-03 12:29] VITALS: BP 150/100; PULSE 66; RESP 20; TEMP 36.6; O2SAT 98
--- NOTE | 2024-05-03 12:43 | ED.ABDPAIN ---
HPI - Abdominal Pain General Chief Complaint: Abdominal Pain Stated Complaint: abd pain Time Seen by Provider: 05/03/24 12:34 History of Present Illness HPI narrative: 53-year-old male with a history of hypertension, ureterolithiasis, s/p cholecystectomy presents to emergency department for sudden-onset left flank pain that radiates to the left abdomen and into his groin. He reports that he had nausea but no emesis. Denies dysuria or hematuria, urinary frequency urgency, diarrhea, fever. Endorses a history of kidney stones. States he underwent lithotripsy approximately 1 year ago. he does not have urologist. Related Data Allergies Allergy/AdvReac Type Severity Reaction Status Date / Time Bee sting Allergy Mild Headache Uncoded 05/03/24 13:40 Review of Systems Review of Systems: All systems reviewed & are unremarkable except as noted in HPI and below PMFSH Past Medical History Medical History Hypertension Tobacco abuse Surgical History Surgical History H/O vasectomy Hx of cholecystectomy S/P ORIF (open reduction internal fixation) fracture Bilateral ankles Family History Family History Mother Cerebrovascular accident Family history of pancreatic cancer Father Family history of malignant neoplasm Family history of diabetes mellitus in first degree relative Social History Social History Social History: The patient states that he smoked 15-20 cigars a day. He lives with his and his is the durable power admitted attorneys for healthcare. They have 3 children. The patient works at [employer]. He denies any marijuana alcohol or illicit drugs. His is the durable power admitted attorneys for healthcare. Code status full code Years smoked: 35 Smoking status: Current every day smoker Tobacco type: cigars Second hand tobacco smoke exposure: No Additional smoking assessment comments: pt states he smokes 15 cigars/day Alcohol intake: never Substance use: never Lack of Transportation: No Lack of Food: Never True Current Housing: Decline to Answer Concerned About Future Housing: Decline to Answer Difficulty Paying Gas/Electric Bills: Decline to Answer Difficulty Paying for Meds: Decline to Answer Education: High School Diploma/GED Difficulty w/ Childcare or Family Care: Decline to Answer Spiritual care concerns: No Exam Narrative: GENERAL: well-nourished, diaphoretic, uncomfortable HEAD: Normocephalic, atraumatic. EYES: PERRLA and EOMI. ENT: Nares clear, no rhinorrhea or epistaxis. Mucous membranes moist. NECK: Supple. CHEST: Clear to auscultation. No respiratory distress. HEART: Regular rate and rhythm. No murmur heard. Normal peripheral pulses. ABDOMEN: Normoactive bowel sounds. Abdomen soft with tenderness in the left CVA. No rebound or rigidity EXTREMITIES: Normal range of motion. No edema. SKIN: Warm, dry, no rash. NEURO: No focal deficits. Alert and oriented x3 Course Vital Signs Vital signs: Vital Signs Temperature 97.8 F 05/03/24 12:29 Pulse Rate 66 05/03/24 12:29 Respiratory Rate 20 05/03/24 12:29 Blood Pressure 150/100 H 05/03/24 12:29 Pulse Oximetry 98 05/03/24 12:29 Oxygen Delivery Room Air 05/03/24 12:29 Temperature 97.8 F 05/03/24 13:35 Pulse Rate 92 05/03/24 15:47 Respiratory Rate 15 05/03/24 15:47 Blood Pressure 110/59 L 05/03/24 15:47 Pulse Oximetry 95 05/03/24 15:47 Oxygen Delivery Room Air 05/03/24 13:35 MDM - Abdominal Pain MDM Narrative Medical decision making narrative: 53-year-old male presents emergency department for sudden-onset left flank pain and left abdominal pain that started prior to arrival. Triage vital significant for hypertension 150/100, otherwise unrema
[2024-05-03 12:50] LABS: Basophils Absolute Auto 0.1 K/mm3 (0.0-0.1); Eosinophils Absolute Auto 0.3 K/mm3 (0-0.3); Eosinophils Percent Auto 3.1 % (0-4.4); Hematocrit 51.6 % (42.0-52.0); Immature Granulocyte Absolute 0.04 K/mm3 (0.00-0.031); Immature Granulocyte Percent A 0.4 % (0-0.5); Lymphocytes Absolute Auto 2.23 K/mm3 (0.9-3.2); Lymphocytes Percent Auto 24.4 % (18.3-44.2); Mean Corpuscular HGB Conc 34.9 g/dl (32-36); Mean Corpuscular Hemoglobin 33.6 pg (26-34); Mean Corpuscular Volume 96.3 fl (80-100); Monocytes Absolute Auto 0.8 K/mm3 (0.1-0.6); Monocytes Percent Auto 8.2 % (2.6-8.5); Neutrophils Absolute Auto 5.8 K/mm3 (1.3-6.7); Neutrophils Percent Auto 62.9 % (45.5-73.1); Platelet Count Result 222 k/mm3 (150-375); Red Blood Count 5.36 M/mm3 (4.6-6.20); Red Cell Distribution Width 12.7 % (11.5-14.5); White Blood Count 9.1 K/mm3 (4.5-10.0)
[2024-05-03 13:03] LABS: Alanine Aminotransferase 29 U/L (6-50); Albumin Level 4.6 g/dL (3.5-5.1); Alkaline Phosphatase 79 U/L (38-126); Anion Gap 8 mmol/L (4-12); Aspartate Amino Transferase 24 U/L (17-59); Bilirubin,Total 1.1 mg/dL (0.2-1.3); Blood Urea Nitrogen 15 mg/dL (9-20); Calcium 9.2 mg/dL (8.4-10.2); Carbon Dioxide 23 mmol/L (22-30); Chloride 107 mmol/L (98-107); Estimated CRCL calculation 88 ml/min; Estimated Glomerular Filt Rate > 60; Glucose 152 mg/dL (65-110); Potassium 4.4 mmol/L (3.4-5.0); Sodium 138 mmol/L (137-145)
[2024-05-03 13:27] LABS: Lipase 43 U/L (23-300)
[2024-05-03 13:35] VITALS: BP 125/77; PULSE 63; RESP 17; TEMP 36.6; O2SAT 96
[2024-05-03] MEDS: TAMSULOSIN HCL 0.4 MG CAPSULE PO (13:48)
[2024-05-03] MEDS: ONDANSETRON INJ 4 MG/2 ML VIAL IV PUSH (13:49)
[2024-05-03] MEDS: MORPHINE SULFATE (*CRX) 4 MG/ML INJ IV PUSH (13:50)
[2024-05-03 15:34] LABS: Appearance Urine Cloudy (Clear); Blood Urine 3+ (Negative); Color Urine Dark Yellow (Yellow); Glucose Urine UA Negative (Negative); Ketones Urine Trace mg/dL (Negative); Protein Urine Trace mg/dL (Negative); Specific Grav Ur 1.028 (1.001-1.035); pH Urine 5.5 (5.0-9.0)
[2024-05-03 15:35] LABS: Add Urine Microscopic? YES; Bacteria Urine None Seen /hpf; Bilirubin Urine 1+ (Negative); Calcium Oxalate Crystals Urine Present /hpf; Leukocyte Esterase Ur Trace LEU/UL (Negative); Need Manual Microscopic Reviewed; Nitrate Urine Negative (Negative); Non Pathogenic Casts 0-2; RBC Urine 51-100 /hpf (0-2); Squamous Epithelial Cell Urine None Seen /hpf (Few); WBC Urine 0-5 /hpf (0-3)
[2024-05-03 15:47] VITALS: BP 110/59; PULSE 92; RESP 15; O2SAT 95
== END 2024-05-03 16:24 | disposition home or self-care (01) ==
PROVIDERS: Emergency Medicine; Emergency Provider Physician Assistant; PCP Family Medicine Adolescent Medicine
DX: N20.2 Calculus of kidney with calculus of ureter (principal); I10 Essential (primary) hypertension; F17.210 Nicotine dependence, cigarettes, uncomplicated
CPT/HCPCS: 36415; 74176; 80053; 81001; 83690; 85025; 96374; 96375; 99284; A9270; J2270; J2405